=== PATIENT | male | born 1945 | race Two or more races ===

== ENCOUNTER 2021-12-07 15:15 | Outpatient (CLI) | payer OTHER ==
[2021-12-08] MEDS ORDERED: VALSARTAN-HCTZ1 EAC1 PO (12:17)
[2021-12-08] MEDS ORDERED: NORVASC5 MG PO (12:17)
[2021-12-08] MEDS ORDERED: FAMOTI PO (12:18)
[2021-12-08] MEDS ORDERED: HORIZANT300 MG PO (12:18)
[2021-12-08] MEDS ORDERED: BACLOFEN10 MG PO (12:18)
== END 2021-12-07 15:27 | disposition home or self-care (01) ==
LOC: LAB 15:15
PROVIDERS: ATTEND Internal Medicine Geriatric Medicine
DX: D68.9 Coagulation defect, unspecified (principal)

== ENCOUNTER 2021-12-08 10:45 | Inpatient (IN) | payer OTHER ==
[~2021-12-08] VITALS: Ht 172.7 cm; Wt 74.8 kg
[2021-12-08] MEDS ORDERED: VALSARTAN-HCTZ1 EAC1 PO (12:17)
[2021-12-08] MEDS ORDERED: NORVASC5 MG PO (12:17)
[2021-12-08] MEDS ORDERED: BACLOFEN10 MG PO (12:18)
[2021-12-08] MEDS ORDERED: HORIZANT300 MG PO (12:18)
[2021-12-08] MEDS ORDERED: FAMOTI PO (12:18)
[2021-12-13] MEDS ORDERED: FLONASE16 GM (08:01)
[2021-12-13] MEDS ORDERED: GABAPENTIN300 M2 (08:01)
[2021-12-13] MEDS ORDERED: DIPHENHYDR50 MG/1 M1 (08:01)
[2021-12-13] MEDS ORDERED: FAMOTIDINE20 MG (08:01)
== END 2022-01-16 18:55 | disposition home or self-care (01) | DRG 329 ==
LOC: EDUNIT# 10:45 → O/R 12-13 05:45 → SURG 12-13 05:45 → SURH 12-13 07:00 → SURG 12-13 13:08 → SURH 12-15 16:08
PROVIDERS: ADMIT Colon & Rectal Surgery; ATTEND Colon & Rectal Surgery
PROC: 0DBP0ZZ Excision of Rectum, Open Approach (ICD-10-PCS; 2021-12-13)
PROC: 0DBE0ZZ Excision of Large Intestine, Open Approach (ICD-10-PCS; 2021-12-13)
PROC: 0DQ80ZZ Repair Small Intestine, Open Approach (ICD-10-PCS; 2021-12-13)
PROC: 0D1B0Z4 Bypass Ileum to Cutaneous, Open Approach (ICD-10-PCS; principal; 2021-12-13 07:00)
PROC: 0D9670Z Drainage of Stomach with Drainage Device, Via Natural or Artificial Opening (ICD-10-PCS; 2021-12-15)
PROC: 02HV33Z Insertion of Infusion Device into Superior Vena Cava, Percutaneous Approach (ICD-10-PCS; 2021-12-15)
PROC: 5A0945A Assistance with Respiratory Ventilation, 24-96 Consecutive Hours, High Flow/Velocity Cannula (ICD-10-PCS; 2021-12-15)
PROC: 30243N1 Transfusion of Nonautologous Red Blood Cells into Central Vein, Percutaneous Approach (ICD-10-PCS; 2021-12-26)
PROC: 0W993ZZ Drainage of Right Pleural Cavity, Percutaneous Approach (ICD-10-PCS; 2022-01-08)
PROC: 0W9B3ZZ Drainage of Left Pleural Cavity, Percutaneous Approach (ICD-10-PCS; 2022-01-11)
DX: K57.20 Diverticulitis of large intestine with perforation and abscess without bleeding (principal); J18.8 Other pneumonia, unspecified organism; B37.1 Pulmonary candidiasis; J90 Pleural effusion, not elsewhere classified; J98.11 Atelectasis; K91.89 Other postprocedural complications and disorders of digestive system; K56.7 Ileus, unspecified; K56.51 Intestinal adhesions [bands], with partial obstruction; K62.4 Stenosis of anus and rectum; Z43.3 Encounter for attention to colostomy; D64.89 Other specified anemias; R53.81 Other malaise; F43.23 Adjustment disorder with mixed anxiety and depressed mood; D50.9 Iron deficiency anemia, unspecified; I10 Essential (primary) hypertension; E78.5 Hyperlipidemia, unspecified

== ENCOUNTER 2022-05-02 07:18 | Outpatient (CLI) | payer OTHER ==
[~2022-05-02 07:18] MED LIST: BACLOFEN10 MG PO; DIPHENHYDR50 MG/1 M1; FAMOTI PO; FAMOTIDINE20 MG; FLONASE16 GM; GABAPENTIN300 M2; HORIZANT300 MG PO; NORVASC5 MG PO; VALSARTAN-HCTZ1 EAC1 PO
== END 2022-05-02 07:22 | disposition home or self-care (01) ==
LOC: RX STUDY 07:18
PROVIDERS: ATTEND Colon & Rectal Surgery
DX: K57.20 Diverticulitis of large intestine with perforation and abscess without bleeding (principal)

== ENCOUNTER → 2022-07-11 | Outpatient (CLI) | payer OTHER | END | disposition home or self-care (01) | LOC: RAD 07:28 | PROVIDERS: ATTEND Colon & Rectal Surgery | DX: K57.32 Diverticulitis of large intestine without perforation or abscess without bleeding (principal) ==

== ENCOUNTER 2022-09-05 12:15 | Inpatient (IN) | payer OTHER ==
[~2022-09-05] VITALS: Ht 172.7 cm; Wt 70.3 kg
[2022-09-12] MEDS ORDERED: VALSARTAN160 MG (08:26)
[2022-09-12] MEDS ORDERED: ROSUVASTATIN CA20 MG (08:26)
[2022-09-12] MEDS ORDERED: OMEPRAZOLE20 MG (08:26)
[2022-09-12] MEDS ORDERED: ST. JOSEPH ASPI81 M2 (08:26)
[2022-09-12] MEDS ORDERED: GABAPENTIN300 M2 (08:26)
[2022-09-12] MEDS ORDERED: GLYCOPYRROLATE2 MG (08:26)
[2022-09-15] MEDS ORDERED: HYOSCYAMINE0.125 M1 SL (14:10)
[2022-09-15] MEDS ORDERED: OXYCODONE HCL5 MG PO (14:11)
== END 2022-09-15 14:57 | disposition home or self-care (01) | DRG 348 ==
LOC: O/R 09-12 05:30 → SURH 09-12 07:00
PROVIDERS: ADMIT Colon & Rectal Surgery; ATTEND Colon & Rectal Surgery
PROC: 0DBB4ZZ Excision of Ileum, Percutaneous Endoscopic Approach (ICD-10-PCS; principal; 2022-09-12 07:00)
DX: Z43.2 Encounter for attention to ileostomy (principal); K57.20 Diverticulitis of large intestine with perforation and abscess without bleeding; K62.4 Stenosis of anus and rectum; K66.0 Peritoneal adhesions (postprocedural) (postinfection); Z86.73 Personal history of transient ischemic attack (TIA), and cerebral infarction without residual deficits; Z20.822 Contact with and (suspected) exposure to COVID-19

== ENCOUNTER 2022-09-16 10:40 | Inpatient (IN) | payer OTHER ==
[~2022-09-16] VITALS: Ht 172.7 cm; Wt 70.3 kg
[~2022-09-16 10:40] MED LIST changes: +GLYCOPYRROLATE2 MG; +HYOSCYAMINE0.125 M1 SL; +OMEPRAZOLE20 MG; +OXYCODONE HCL5 MG PO; +ROSUVASTATIN CA20 MG; +ST. JOSEPH ASPI81 M2; +VALSARTAN160 MG
--- NOTE | 2022-09-16 10:55 | NUR ---
SE RECIBE PACIENTE MASCULINO DE 77 ANOS DE EDAD DESPIERTO Y ALERTA POR SERVICIOS PARAMEDICOS CON QUEJA PRINCIPAL DE NAUSEAS Y VOMITOS DESDE HOY. PACIENTE REFIERE QUE SE OPERO GUERLINE PARA ADELINE ILEOTOCMIA POR DR. ASH.
--- NOTE | 2022-09-16 12:31 | NUR ---
SE ORIENTA PTE SOBRE TX A SEGUIR, EL CUAL REFIERE ENTENDER. SE COLECTAN MUESTRAS Y SE CANALIZA PTE UTILIZANDO MEDIDAS ASEPTICAS Y SE ADM. MEDICAMETNOS THADDEUS ORDEN MEDICA.
== END 2022-09-26 15:22 | disposition home or self-care (01) | DRG 394 ==
LOC: ER 10:40 → SURH 14:31
PROVIDERS: ADMIT Colon & Rectal Surgery; ATTEND Colon & Rectal Surgery
PROC: 02HV33Z Insertion of Infusion Device into Superior Vena Cava, Percutaneous Approach (ICD-10-PCS; principal; 2022-09-18)
PROC: 8E0ZXY6 Isolation (ICD-10-PCS; 2022-09-19)
PROC: BW21YZZ Computerized Tomography (CT Scan) of Abdomen and Pelvis using Other Contrast (ICD-10-PCS; 2022-09-21)
DX: K91.89 Other postprocedural complications and disorders of digestive system (principal); N17.8 Other acute kidney failure; K29.70 Gastritis, unspecified, without bleeding; E86.0 Dehydration; I10 Essential (primary) hypertension; F43.23 Adjustment disorder with mixed anxiety and depressed mood; D72.828 Other elevated white blood cell count

== ENCOUNTER 2022-10-13 18:25 | Inpatient (IN) | payer OTHER ==
[~2022-10-13] VITALS: Ht 167.6 cm; Wt 63.5 kg
--- NOTE | 2022-10-13 18:35 | NUR ---
SE RECIBE PTE ALERTA Y ORIENTA X3 PTE REFIERE QUE DEL ROSARIO COLORECTAL ES DRSushant TOUS Y DEL ROSARIO INTERNISTA YOUNG. PTE REFIERE DOLOR EN ANO DESDE LA TARDE DE HOY. SE CATHY VITALES Y SE REEMA EN OBSERVACION.
--- NOTE | 2022-10-13 19:55 | NUR ---
PTE ALERTA Y ORIENTADO X3. SE REALIZAN MUESTRAS DE LAB THADDEUS ORDEN MEDICA Y BAJO MEDIDAS ASEPTICAS. SE ADMINISTRA MEDICAMENTO THADDEUS ORDEN MEDICA. PTE ATENDIDO POR GENNY REHMAN.
--- NOTE | 2022-10-13 22:29 | NUR ---
SE LE HACE ENTREGA A PACIENTE DE CONTRASTE PO Y SE LE INDICA NOTIFICAR LORENZO PRONTO CULMINE EL MISMO.
--- NOTE | 2022-10-13 23:29 | NUR ---
PACIENTE ALERTA Y ORIENTADO X3. EN EMERSON CONA BARANDAS ELEVADAS Y ACOMPANADO POR FAMILIAR. IV FLUID PATENTE Y MANNIE DE EDEMA Y ERITEMA POR BRAZO KEL. PENDIENTE REALIZACION DE CT ABDOMEN Y PELVICO A LAS 1:00AM. SE MANTIENE BAJO OBSERVACION POR CAMBIOS SIGNIFICATIVOS.
--- NOTE | 2022-10-14 07:35 | NUR ---
SE RECIBE PTE DEL TURNO ANTERIOR ALERTA Y ORIENTADO POR 3, EN EMERSON CON BARANDAS ELEVADA Y TIMBRE ACCESIBLE, NO PRESENTA DOLOR AL MOMENTO SE OBSERVA VENOPUNCION PATENTE Y MANNIE DE EDEMA, PTE CON DIARREAS, PTE SE MANITIENE EN OBSERVACION Y BAJO TRATAMIENTO.
--- NOTE | 2022-10-14 10:46 | NUR ---
RN NAIR ASISTE PTE EN DEL ROSARIO CUIDADO PERSONAL Y CATETERIZA PTE BAJO MEDIDAS ASEPTICAS
[2022-10-29] MEDS ORDERED: VANCOMYCIN HCL1 GM PO (15:10)
[2022-10-29] MEDS ORDERED: INTESTINEX680 M1 PO (15:10)
[2022-10-29] MEDS ORDERED: VALSARTAN160 MG PO (15:10)
[2022-10-29] MEDS ORDERED: ROSUVASTATIN CA20 MG PO (15:10)
[2022-10-29] MEDS ORDERED: NORVASC5 MG PO (15:10)
[2022-10-29] MEDS ORDERED: HYOSCYAMINE0.125 M1 SL (15:10)
[2022-10-29] MEDS ORDERED: FAMOTIDINE20 MG PO (15:10)
[2022-10-29] MEDS ORDERED: LEVOFLOXACIN750 MG PO (15:10)
== END 2022-10-29 18:30 | disposition home or self-care (01) | DRG 372 ==
LOC: ER 18:25 → SURH 10-14 13:00
PROVIDERS: ADMIT Colon & Rectal Surgery; ATTEND Colon & Rectal Surgery
PROC: 02HV33Z Insertion of Infusion Device into Superior Vena Cava, Percutaneous Approach (ICD-10-PCS; 2022-10-15)
PROC: 0DBN8ZX Excision of Sigmoid Colon, Via Natural or Artificial Opening Endoscopic, Diagnostic (ICD-10-PCS; principal; 2022-10-17)
DX: A04.72 Enterocolitis due to Clostridium difficile, not specified as recurrent (principal); N39.0 Urinary tract infection, site not specified; K64.0 First degree hemorrhoids; D64.9 Anemia, unspecified; E86.0 Dehydration; I10 Essential (primary) hypertension; E78.5 Hyperlipidemia, unspecified; E87.8 Other disorders of electrolyte and fluid balance, not elsewhere classified; Z86.73 Personal history of transient ischemic attack (TIA), and cerebral infarction without residual deficits; Z20.822 Contact with and (suspected) exposure to COVID-19; B96.4 Proteus (mirabilis) (morganii) as the cause of diseases classified elsewhere; B96.1 Klebsiella pneumoniae [K. pneumoniae] as the cause of diseases classified elsewhere